=== PATIENT | female | born 1955 | race Caucasian/White ===

== ENCOUNTER 2016-09-20 12:16 | Outpatient (CLI) | payer MEDICAID | END 2016-09-20 12:17 | disposition home or self-care (01) | DX: R92.1 Mammographic calcification found on diagnostic imaging of breast (principal); Z80.3 Family history of malignant neoplasm of breast ==

== ENCOUNTER 2016-12-26 15:59 | Outpatient (CLI) | payer MEDICAID | END 2016-12-26 16:00 | disposition home or self-care (01) | DX: M19.071 Primary osteoarthritis, right ankle and foot (principal) ==

== ENCOUNTER 2017-07-04 15:37 | Outpatient (CLI) | payer MEDICAID ==
--- NOTE | 2017-07-05 09:25 | XRAY Report ---
TWO-VIEW CHEST: 07/04/2017 CLINICAL INDICATION: Pneumonia. COMPARISON: 08/01/2014 FINDINGS: Frontal and lateral views of the chest demonstrate a normal cardiac silhouette. There is a patchy right basilar infiltrate. No effusion or pneumothorax is present. IMPRESSION: PATCHY RIGHT BASILAR INFILTRATE. JOB #: [id number] EXT JOB #:[id number]
== END 2017-07-04 15:38 | disposition home or self-care (01) ==
LOC: DI.N 15:37
PROVIDERS: ATTEND Family Medicine
DX: J18.0 Bronchopneumonia, unspecified organism (principal); R09.02 Hypoxemia
CPT/HCPCS: 71020

== ENCOUNTER 2017-08-14 11:52 | Outpatient (CLI) | payer MEDICAID ==
--- NOTE | 2017-08-14 13:25 | Mammography Report ---
DIGITAL DIAGNOSTIC BILATERAL MAMMOGRAM: 08/14/2017 CLINICAL INDICATION: Followup calcifications. TECHNIQUE: Bilateral CC and MLO views, right true lateral and spot magnification views. COMPARISON: 09/20/2016, 12/26/2015, 03/22/2015, 09/27/2014, 09/02/2014. FINDINGS: The breasts demonstrate scattered fibroglandular densities bilaterally. The calcifications in question, in the right breast, remain punctate on spot magnification views. Other coarse and punc almaguer, typically benign calcifications are present. No suspicious masses, clustered microcalcification s, or regions of architectural distortion are identified. IMPRESSION: BENIGN FINDINGS. RECOMMENDATION: ROUTINE ANNUAL SCREENING UNLESS OTHERWISE CLINICALLY INDICATED. BIRADS CATEGORY 2-BENIGN FINDINGS. STANDARD QUALIFYING STATEMENTS 1. This examination was reviewed with the aid of Computer-Aided Detection (CAD). 2. A negative or benign imaging report should not delay biopsy if clinically suspicious findings are present. Consider surgical consultation if warranted. More than 5% of cancers are not identified by i maging. 3. Dense breasts may obscure an underlying neoplasm. JOB #: [id number] EXT JOB #:
== END 2017-08-14 11:53 | disposition home or self-care (01) ==
LOC: DI 11:52
PROVIDERS: ATTEND Obstetrics & Gynecology
DX: R92.1 Mammographic calcification found on diagnostic imaging of breast (principal)
CPT/HCPCS: 77066

== ENCOUNTER 2017-10-03 12:11 | Outpatient (CLI) | payer MEDICAID ==
--- NOTE | 2017-10-03 18:46 | XRAY Report ---
DATE OF SERVICE: 10/03/2017 THREE VIEW RIGHT ANKLE: 10/03/2017 CLINICAL INDICATION: Ankle sprain, pain. AP, lateral, oblique views of the right ankle demonstrate soft tissue swelling. There is no evidence of acute fracture or dislocation. No joint effusion is seen. No foreign body is seen in the soft tissues. IMPRESSION: Soft tissue swelling, but no evidence of acute fracture. TD: 10/03/2017 19:45
== END 2017-10-03 12:12 | disposition home or self-care (01) ==
LOC: DI 12:11
PROVIDERS: ATTEND Family Medicine
DX: M25.571 Pain in right ankle and joints of right foot (principal); R22.41 Localized swelling, mass and lump, right lower limb

== ENCOUNTER 2017-10-22 14:29 | Emergency (ER) | payer MEDICAID ==
--- NOTE | 2017-10-22 15:05 | ED Physician Documentation ---
PD HPI HEADACHE - Stated complaint Stated Complaint: BLURRY VISION,HEAD PRESSURE,LOSS OF BALANCE-GLF - Chief complaint Chief Complaint: Neuro - History obtained from History obtained from: Patient - History of Present Illness Timing - onset: How many days ago (fell and hit back of head 4 days ago. Gary headache at the time. Having head pressure, lightheaded, and feeling off balance the past 2 days.) Timing - onset during: Light activity Timing - details: Abrupt onset, Waxing and waning Worst headache ever?: No: Worst headache ever? Location: Back Quality: Aching, Other (pressure) Associated symptoms: No: Fever, Stiff neck, Nausea, Weakness, Numbness Improved by: Rest Worsened by: Moving. No: Light, Noise Contributing factors: Trauma Similar symptoms before: Has not had sx before Recently seen: Not recently seen Review of Systems Constitutional: denies: Fever, Chills Nose: denies: Rhinorrhea / runny nose, Congestion Throat: denies: Sore throat Cardiac: denies: Chest pain / pressure, Palpitations Respiratory: denies: Dyspnea, Cough GI: denies: Abdominal Pain, Nausea, Vomiting Skin: denies: Abrasion (s), Laceration (s) Neurologic: reports: Altered mental status (feeling lightheaded and off balance) . denies: Focal weakness, Numbness, Near syncope PD PAST MEDICAL HISTORY - Past Medical History Past Medical History: Yes Cardiovascular: Hypertension, [place], Other Respiratory: None Neuro: CVA Endocrine/Autoimmune: None Psych: Depression, Anxiety Musculoskeletal: Osteoarthritis - Past Surgical History Past Surgical History: Yes Ortho: Arthroscopic surgery Cardiovascular: Cardiac catheterization, Angioplasty - Present Medications Home Medications: Ambulatory Orders Medication Instructions Recorded Confirmed Aspirin 81 mg ORAL DAILY 08/01/14 10/08/14 EPINEPHrine [Epipen] 0.3 mg IM ONCE 10/08/14 10/08/14 Lisinopril 20 mg PO DAILY 10/22/17 SUMAtriptan [Imitrex] 25 mg PO DAILY PRN 10/22/17 10/22/17 Sertraline [Zoloft] 25 mg PO DAILY 10/22/17 - Allergies Allergies/Adverse Reactions: Allergies Allergy/AdvReac Type Severity Reaction Status Date / Time ketorolac tromethamine * Allergy Hallucinati Verified 10/22/17 14:44 [From Toradol] ons meperidine HCl * Allergy "I see Verified 10/22/17 14:44 [From Demerol] vitamin people having races on the ceiling for days" prednisone Allergy Hives Verified 10/22/17 14:44 pseudoephedrine HCl * Allergy throat Verified 10/22/17 14:44 [From Sudafed] swelling venom-honey bee Allergy Anaphylaxis Verified 10/22/17 14:44 [bee venom (honey bee)] - Social History Does the pt smoke?: Yes Smoking Status: Current every day smoker Does the pt drink ETOH?: No Does the pt have substance abuse?: No - Immunizations Immunizations are current?: No Immunizations: Other immun not current PD ED PE NORMAL - Vitals Vital signs reviewed: Yes - General General: Alert and oriented X 3, No acute distress, Well developed/nourished - HEENT HEENT: Atraumatic, PERRL, EOMI, Moist mucous membranes - Neck Neck: Supple, no meningeal sign, No adenopathy - Cardiac Cardiac: RRR, No murmur - Respiratory Respiratory: Clear bilaterally - Abdomen Abdomen: Soft, Non tender - Back Back: No CVA TTP, No spinal TTP - Derm Derm: Normal color, Warm and dry - Extremities Extremities: No tenderness to palpate, Normal ROM s pain - Neuro Neuro: Alert and oriented X 3, retort pre cooker 2-12 intact, No motor deficit, No sensory deficit, Normal speech, Other Eye Opening: Spontaneous Motor: Obeys Commands Verbal: Oriented GCS Score: 15 - Psych Psych: Normal mood, Normal affect Results - Vitals Vitals: Oxygen O2 Source Room air - Labs Labs: Laboratory Tests 10/22/17 10/22/17 10/22/17 16:14 16:14 16:14 WBC 8.1 RBC 4.81 Hgb 14.5 Hct 42.8 MCV 89.0 MCH 30.0 MCHC 33.7 RDW 12.6 Plt Count 282 MPV 8.0 Neut # 5.0 Lymph # 2.5 [place] # 0.4 Eos # 0.1 Baso # 0.1 Absolute Nucleated RBC 0.00 Nucleated RBC % 0.0 ESR 12 Sodium 140 Potassium 4.1 Chloride 102 Carbon Dioxide 26 Anion Gap 12.0 BUN 9 Creatinine 0.8 Estimated GFR (MDRD) 73 L Glucose 96 Calcium 9.0 Magnesium 2.1 Total Bilirubin 0.6 AST 16 ALT 16 Alkaline Phosphatase 85 Total Protein 7.6 Albumin 4.2 Globulin 3.4 Albumin/Globulin Ratio 1.2 Lipase 14 L - Rads (name of study) head CT Radiology: Prelim report reviewed (no acute process; minimal change in meningioma) PD MEDICAL DECISION MAKING - ED course Complexity details: reviewed results, considered differential, d/w patient Departure - Departure Disposition: 01 Home, Self Care Clinical Impression: Post concussion syndrome Condition: Stable Record reviewed to determine appropriate education?: Yes Instructions: ED Concussion Follow-Up: Parrish Shipley MD [Primary Care Provider] - Comments: Naproxen or ibuprofen 2-3 times a day for the next several days. No signs of obvious bad causes for your symptoms. If he had struck her head some a few days ago this may be just some postconcussive symptoms that typically last a few days to week. Recheck if not improved over the next several more days. Discharge Date/Time: 10/22/17 18:05
--- NOTE | 2017-10-22 16:01 | CT Report ---
EXAM: CT HEAD EXAM DATE: 10/22/2017 03:48 PM. CLINICAL HISTORY: Fall. Headache. Intermittent blurred vision and dizziness. History of brain tumor. COMPARISON: 03/10/2013. TECHNIQUE: Multiaxial CT images were obtained from the foramen magnum to the vertex. Reformats: Coron al. IV contrast: None. In accordance with CT protocol optimization, one or more of the following dose reduction techniques w ere utilized for this exam: automated exposure control, adjustment of mA and/or KV based on patient s ize, or use of iterative reconstructive technique. FINDINGS: Parenchyma: No intraparenchymal hemorrhage. No evidence of mass, midline shift, or CT findings of acu te infarction. Quezada-white differentiation is distinct. Mild chronic microangiopathic white matter phillip nges are evident. Extraaxial Spaces: Calcified left parafalcine mass, 1.5 x 1.1 cm, larger than prior, otherwise normal for age. No subdural or epidural collections identified. Ventricles: The ventricles and cortical sulci are normal for age. Sinuses and orbits: Imaged paranasal sinuses, orbits, and mastoids show no significant abnormality. Bones: No evidence of fracture or calvarial defect. Other: None. IMPRESSION: Mild age-related changes without evidence of acute intracranial abnormality, noting mild interval growth in a left parafalcine meningioma. [facility] Referring Provider Line: [phone] SITE ID: [id number]
[2017-10-22] MEDS ORDERED: KETOROLAC 60 MG/2 ML VIAL IVP STA (16:04)
[2017-10-22] MEDS ORDERED: SODIUM CHLORIDE 0.9% 1,000 ML IV ONE (16:04)
[2017-10-22 16:21] LABS: BASOPHILS # (AUTO) 0.1 10^3/uL (0.0-0.1); EOSINOPHILS # (AUTO) 0.1 10^3/uL (0.0-0.7); EOSINOPHILS % (AUTO) 0.9 %; HGB - HEMOGLOBIN 14.5 g/dL (12.0-16.0); LYMPHOCYTES # (AUTO) 2.5 10^3/uL (1.5-3.5); LYMPHOCYTES % (AUTO) 31.1 %; MEAN CORPUSCULAR HGB CONC 33.7 g/dL (32.0-36.0); MONOCYTES # (AUTO) 0.4 10^3/uL (0.0-1.0); MONOCYTES % (AUTO) 4.6 %; NEUTROPHILS % (AUTO) 62.4 %; PLT - PLATELET COUNT 282 10^3/uL (130-450); RED BLOOD COUNT 4.81 10^6/uL (4.20-5.40); RED CELL DISTRIBUTION WIDTH 12.6 % (12.0-15.0); WHITE BLOOD COUNT 8.1 x10^3/uL (4.8-10.8)
[2017-10-22 16:33] LABS: ALBUMIN 4.2 g/dL (3.2-5.5); ALBUMIN/GLOBULIN RATIO 1.2 (1.0-2.2); BILIRUBIN,TOTAL 0.6 mg/dL (0.2-1.0); CREATININE 0.8 mg/dL (0.4-1.0); MAGNESIUM 2.1 mg/dL (1.7-2.8); TOTAL PROTEIN 7.6 g/dL (6.7-8.2)
[2017-10-22 17:07] VITALS: BP 142/68
== END 2017-10-22 18:05 | disposition home or self-care (01) ==
LOC: ED 14:29
DX: F07.81 Postconcussional syndrome (principal); I10 Essential (primary) hypertension; I25.2 Old myocardial infarction; F17.200 Nicotine dependence, unspecified, uncomplicated; Z86.73 Personal history of transient ischemic attack (TIA), and cerebral infarction without residual deficits
CPT/HCPCS: 36415; 70450; 80053; 83690; 83735; 85025; 85651; 96360; 99283; 99284

== ENCOUNTER 2018-12-25 08:00 | Outpatient (CLI) | payer MEDICAID ==
[2018-12-25 20:49] LABS: BILIRUBIN,URINE NEGATIVE (NEGATIVE); GLUCOSE, URINE (UA) NEGATIVE (NEGATIVE); KETONES,URINE (UA) TRACE mg/dL (NEGATIVE); LEUKOCYTE ESTERASE, URINE NEGATIVE (NEGATIVE); NITRITE,URINE NEGATIVE (NEGATIVE); OCCULT BLOOD,URINE MODERATE (NEGATIVE); PH,URINE 6.5 PH (5.0-7.5); PROTEIN,URINE NEGATIVE (NEGATIVE); UROBILINOGEN,URINE 0.2 (NORMAL) E.U./dL (NORMAL)
[2018-12-25 21:21] LABS: CLARITY,URINE CLEAR (CLEAR)
[2018-12-25 21:22] LABS: BACTERIA,URINE None Seen /HPF (None Seen); RBC,URINE 0-5 /HPF (0-5); SQUAMOUS EPITHELIAL CELL,UR FEW Squamous (<= Few)
== END 2018-12-25 23:59 | disposition home or self-care (01) ==
LOC: LAB.R 08:00
PROVIDERS: ATTEND Physician Assistant Medical
DX: N39.0 Urinary tract infection, site not specified (principal); N30.90 Cystitis, unspecified without hematuria
CPT/HCPCS: 81001; 81003; 87086

== ENCOUNTER 2019-03-31 18:27 | Emergency (ER) | payer MEDICAID ==
[2019-03-31] MEDS ORDERED: diphenhydrAMINE INJ 50 MG/ML VIAL IM STA (18:40)
[2019-03-31] MEDS ORDERED: ALBUTEROL NEB 2.5 MG/3 ML INH STA (18:44)
--- NOTE | 2019-03-31 20:05 | ED Physician Documentation ---
History of Present Illness - Stated complaint Stated Complaint: BEE STING - Chief complaint Chief Complaint: Allergic Rx - History obtained from History obtained from: Patient - History of Present Illness Timing: How many hours ago (1) Pain level max: 0 Pain level now: 0 - Additonal information Additional information: 63-year-old female states that she was stung in the left ankle x2 by a bee. She states that her throat feels "dry". No difficulty breathing. No wheezing. No stridor. Had an EpiPen in the past but states that it was discolored so she did not use it. Has not taken any medications prior to arrival. Nothing makes it better or worse. Review of Systems Constitutional: denies: Fever, Chills Cardiac: denies: Chest pain / pressure Respiratory: denies: Cough GI: denies: Vomiting, Diarrhea Skin: denies: Rash Musculoskeletal: denies: Neck pain, Back pain Neurologic: denies: Headache PD PAST MEDICAL HISTORY - Past Medical History Past Medical History: Yes Cardiovascular: Hypertension, [place], Other Respiratory: None Endocrine/Autoimmune: None Psych: Depression, Anxiety Musculoskeletal: Osteoarthritis - Past Surgical History Past Surgical History: Yes Ortho: Arthroscopic surgery Cardiovascular: Cardiac catheterization, Angioplasty - Present Medications Home Medications: Ambulatory Orders Medication Instructions Recorded Confirmed Aspirin 81 mg ORAL DAILY 08/01/14 10/08/14 EPINEPHrine [Epipen] 0.3 mg IM ONCE 10/08/14 10/08/14 Lisinopril 20 mg PO DAILY 10/22/17 SUMAtriptan [Imitrex] 25 mg PO DAILY PRN 10/22/17 10/22/17 Sertraline [Zoloft] 25 mg PO DAILY 10/22/17 EPINEPHrine [Epinephrine] 0.3 mg IJ ONCE PRN #1 auto.injct 03/31/19 - Allergies Allergies/Adverse Reactions: Allergies Allergy/AdvReac Type Severity Reaction Status Date / Time ketorolac tromethamine * Allergy Hallucinati Verified 03/31/19 18:38 [From Toradol] ons meperidine HCl * Allergy "I see Verified 03/31/19 18:38 [From Demerol] vitamin people having races on the ceiling for days" prednisone Allergy Hives Verified 03/31/19 18:38 pseudoephedrine HCl * Allergy throat Verified 03/31/19 18:38 [From Sudafed] swelling venom-honey bee Allergy Anaphylaxis Verified 03/31/19 18:38 [bee venom (honey bee)] - Social History Does the pt smoke?: Yes Smoking Status: Current every day smoker Does the pt drink ETOH?: No Does the pt have substance abuse?: No - Immunizations Immunizations are current?: No Immunizations: Other immun not current PD ED PE NORMAL - Vitals Vital signs reviewed: Yes - General General: Alert and oriented X 3, No acute distress - HEENT HEENT: PERRL, Moist mucous membranes, Other (Normal oropharyngeal exam. No swelling. No stridor. Uvula midline. Normal phonation.) - Neck Neck: Supple, no meningeal sign - Cardiac Cardiac: RRR - Respiratory Respiratory: No respiratory distress, Clear bilaterally - Abdomen Abdomen: Soft, Non tender, Non distended - Derm Derm: Warm and dry, No rash - Extremities Extremities: No edema, No calf tenderness / cord - Neuro Neuro: Alert and oriented X 3 - Psych Psych: Normal mood, Normal affect Results - Vitals Vitals: Oxygen O2 Source Room air PD MEDICAL DECISION MAKING - ED course Complexity details: reviewed results, re-evaluated patient, considered differential, d/w patient ED course: Patient with an apparent allergic reaction to bee sting. Given Benadryl and albuterol treatment. Her symptoms resolved. She feels better. Will refill her EpiPen for her. She is allergic to steroids and so these were avoided. Patient counseled regarding signs and symptoms for which I believe and urgent re- evaluation would be necessary. Patient with good understanding of and agreement to plan and is comfortable going home at this time This document was made in part using voice recognition software. While efforts are made to proofread this document, sound alike and grammatical errors may occur. Departure - Departure Disposition: 01 Home, Self Care Clinical Impression: Bee sting Qualifiers: Encounter type: initial encounter Injury intent: accidental or unintentional Qualified Code(s): T63.441A - Toxic effect of venom of bees, accidental (unintentional), initial encounter Condition: Good Instructions: ED Bite Sting Insect Gen Allergic React Follow-Up: your,doctor as needed. [Other] Prescriptions: EPINEPHrine [Epinephrine] 0.3 mg IJ ONCE PRN #1 auto.injct PRN Reason: Anaphylaxis Comments: Return if you worsen. You can use Benadryl for any itching. Discharge Date/Time: 03/31/19 20:14
[2019-03-31 20:08] VITALS: BP 141/64
== END 2019-03-31 20:14 | disposition home or self-care (01) ==
LOC: ED 18:27
DX: T63.441A Toxic effect of venom of bees, accidental (unintentional), initial encounter (principal); X58.XXXA Exposure to other specified factors, initial encounter; Y93.H9 Activity, other involving exterior property and land maintenance, building and construction; Z88.8 Allergy status to other drugs, medicaments and biological substances; I10 Essential (primary) hypertension; F17.200 Nicotine dependence, unspecified, uncomplicated; Z79.82 Long term (current) use of aspirin
CPT/HCPCS: 94640; 96372; 99283; J1200

== ENCOUNTER 2023-06-20 12:59 | Emergency (ER) | payer MEDICARE, MEDICAID ==
[2023-06-20] MEDS ORDERED: ALBUTEROL NEB 2.5 MG/3 ML INH STA (13:30)
[2023-06-20] MEDS ORDERED: diphenhydrAMINE INJ 50 MG/ML VIAL IM STA (13:31)
[2023-06-20 13:37] VITALS: O2SAT 96
--- NOTE | 2023-06-20 13:38 | ED Physician Documentation ---
History of Present Illness - Stated complaint Stated Complaint: FACE SWELLING/BEE STING - Chief complaint Chief Complaint: Allergic Rx - History obtained from History obtained from: Patient - History of Present Illness Timing: Today Pain level max: 0 Pain level now: 0 - Additonal information Additional information: 67-year-old female presents to the emergency department after a bee sting today. The bee sting was to the left cheek. Has swelling localized to the left cheek. She states she feels mildly short of breath. Did not take anything prior to arrival. Nothing makes it better or worse. Review of Systems Constitutional: denies: Fever, Chills GI: denies: Vomiting, Diarrhea Skin: denies: Rash PD PAST MEDICAL HISTORY - Past Medical History Cardiovascular: Hypertension, [place], Other Respiratory: None Endocrine/Autoimmune: None Psych: Depression, Anxiety Musculoskeletal: Osteoarthritis - Past Surgical History Past Surgical History: Yes Ortho: Arthroscopic surgery Cardiovascular: Cardiac catheterization, Angioplasty - Present Medications Home Medications: Ambulatory Orders Medication Instructions Recorded Confirmed Aspirin 81 mg ORAL DAILY 08/01/14 10/08/14 EPINEPHrine [Epipen] 0.3 mg IM ONCE 10/08/14 10/08/14 SUMAtriptan [Imitrex] 25 mg PO DAILY PRN 10/22/17 10/22/17 Sertraline [Zoloft] 25 mg PO DAILY 10/22/17 lisinopriL [Lisinopril] 20 mg PO DAILY 10/22/17 EPINEPHrine [Epinephrine] 0.3 mg IJ ONCE PRN #1 auto.injct 03/31/19 Albuterol Sulf [Ventolin Hfa 1 - 2 puffs INH Q4HR PRN #1 each 06/20/23 Inhaler] Cetirizine HCl [Allergy] 10 mg PO DAILY #7 tablet 06/20/23 EPINEPHrine [Epinephrine] 0.3 mg IJ ONCE PRN #1 each 06/20/23 - Allergies Allergies/Adverse Reactions: Allergies Allergy/AdvReac Type Severity Reaction Status Date / Time ketorolac tromethamine * Allergy Hallucinati Verified 06/20/23 13:33 [From Toradol] ons meperidine HCl * Allergy "I see Verified 06/20/23 13:33 [From Demerol] vitamin people having races on the ceiling for days" prednisone Allergy Hives Verified 06/20/23 13:33 pseudoephedrine HCl * Allergy throat Verified 06/20/23 13:33 [From Sudafed] swelling venom-honey bee Allergy Anaphylaxis Verified 06/20/23 13:33 [bee venom (honey bee)] - Social History Does the pt smoke?: Yes Smoking Status: Current every day smoker Does the pt drink ETOH?: No Does the pt have substance abuse?: No - Immunizations Immunizations are current?: No Immunizations: Other immun not current PD ED PE NORMAL - Vitals Vital signs reviewed: Yes - General General: Alert and oriented X 3, No acute distress - HEENT HEENT: PERRL, Moist mucous membranes, Pharynx benign, Other (Mild localized swelling to the left cheek at the site of the sting. No stridor. No wheezing. Normal phonation. Normal oropharyngeal exam) - Neck Neck: Supple, no meningeal sign - Cardiac Cardiac: RRR, Strong equal pulses - Respiratory Respiratory: No respiratory distress, Clear bilaterally - Abdomen Abdomen: Soft, Non tender, Non distended - Derm Derm: Warm and dry - Extremities Extremities: No edema - Neuro Neuro: Alert and oriented X 3 - Psych Psych: Normal mood, Normal affect Results - Vitals Vitals: Vital Signs - 24 hr 06/20/23 06/20/23 06/20/23 13:22 13:49 15:21 Temperature 36.5 C Heart Rate 66 60 64 Respiratory 18 18 18 Rate Blood Pressure 162/74 H 132/70 H O2 Saturation 96 96 Oxygen O2 Source Room air PD Medical Decision Making - ED course Complexity details: re-evaluated patient (Asymptomatic), considered differential, d/w patient ED course: 67-year-old female status post a bee sting appears to have a localized reaction, given Benadryl IM. She states she is allergic to prednisone and it causes her to swell. Does not have any evidence of anaphylaxis, therefore epinephrine was not given. She did feel mildly short of breath so an albuterol nebulizer was given. She feels better after the nebulizer. Observed in the emergency department with no recurrence of symptoms. Would recommend staying on Zyrtec for the next several days. We will place her on an albuterol inhaler at home as she used to have 1 but is now out. She also request an epinephrine pen. Patient counseled regarding signs and symptoms for which I believe and urgent re-evaluation would be necessary. Patient with good understanding of and agreem ent to plan and is comfortable going home at this time This document was made in part using voice recognition software. While efforts are made to proofread this document, sound alike and grammatical errors may occur. Departure - Departure Disposition: 01 Home, Self Care Clinical Impression: Bee sting Qualifiers: Encounter type: initial encounter Injury intent: assault Qualified Code(s): T63.443A - Toxic effect of venom of bees, assault, initial encounter Condition: Good Instructions: ED Bite Sting Insect Gen Allergic React Follow-Up: your,doctor in 1 week [Other] Prescriptions: Albuterol Sulf [Ventolin Hfa Inhaler] 1 - 2 puffs INH Q4HR PRN #1 each PRN Reason: Shortness Of Air/Wheezing Cetirizine HCl [Allergy] 10 mg PO DAILY #7 tablet EPINEPHrine [Epinephrine] 0.3 mg IJ ONCE PRN #1 each PRN Reason: Anaphylaxis Comments: Your prescriptions were sent to [facility] in [place]. Please follow-up with your doctor as needed for further care. Please return if you worsen. We will place you on cetirizine for the next several days to help prevent any further allergic reaction. Forms: PCP List Discharge Date/Time: 06/20/23 15:24
[2023-06-20 15:27] VITALS: BP 132/70
== END 2023-06-20 15:24 | disposition home or self-care (01) ==
LOC: ED 12:59
DX: T63.441A Toxic effect of venom of bees, accidental (unintentional), initial encounter (principal); F17.200 Nicotine dependence, unspecified, uncomplicated; Z88.8 Allergy status to other drugs, medicaments and biological substances
CPT/HCPCS: 94640; 96372; 99283; J1200

== ENCOUNTER 2023-08-02 14:45 | Outpatient (CLI) | payer MEDICARE, MEDICAID ==
[2023-08-02 17:46] LABS: BASOPHILS # (AUTO) 0.1 10^3/uL (0.0-0.1); BASOPHILS % (AUTO) 0.8 %; EOSINOPHILS # (AUTO) 0.1 10^3/uL (0.0-0.7); HCT - HEMATOCRIT 45.2 % (37.0-47.0); LYMPHOCYTES # (AUTO) 2.7 10^3/uL (1.5-3.5); LYMPHOCYTES % (AUTO) 29.6 %; MEAN CORPUSCULAR HEMOGLOBIN 31.3 pg (27.0-31.0); MEAN CORPUSCULAR HGB CONC 33.2 g/dL (32.0-36.0); MEAN CORPUSCULAR VOLUME 94.2 fL (81.0-99.0); MEAN PLATELET VOLUME 10.1 fL (7.9-10.8); MONOCYTES # (AUTO) 0.5 10^3/uL (0.0-1.0); MONOCYTES % (AUTO) 5.4 %; NEUTROPHILS # (AUTO) 5.8 10^3/uL (1.5-6.6); PLT - PLATELET COUNT 313 10^3/uL (130-450); RED CELL DISTRIBUTION WIDTH 11.9 % (12.0-15.0); WHITE BLOOD COUNT 9.1 x10^3/uL (4.8-10.8)
[2023-08-02 18:07] LABS: ALBUMIN 4.6 g/dL (3.2-5.5); ALBUMIN/GLOBULIN RATIO 1.9 (1.0-2.2); BILIRUBIN,TOTAL 0.4 mg/dL (0.2-1.0); CALCIUM 9.5 mg/dL (8.5-10.3); CREATININE 0.7 mg/dL (0.6-1.3)
[2023-08-02 18:15] LABS: THYROID STIMULATING HORMONE 1.02 uIU/mL (0.34-5.60)
[2023-08-02 18:20] LABS: ESTIMATED AVERAGE GLUCOSE 100 mg/dL (70-100); HEMOGLOBIN A1c% 5.1 % (4.27-6.07)
[2023-08-02 21:36] LABS: BACTERIAL VAGINOSIS DNA POSITIVE (NEGATIVE); CANDIDA GLABRATA DNA NEGATIVE (NEGATIVE); CANDIDA GROUP DNA NEGATIVE (NEGATIVE); CANDIDA KRUSEI DNA NEGATIVE (NEGATIVE); TRICHOMONAS VAGINALIS DNA NEGATIVE (NEGATIVE)
== END 2023-08-02 15:00 | disposition home or self-care (01) ==
LOC: LAB.N 14:45
PROVIDERS: ATTEND Registered Nurse
DX: R63.4 Abnormal weight loss (principal); R10.9 Unspecified abdominal pain; N89.8 Other specified noninflammatory disorders of vagina
CPT/HCPCS: 36415; 80053; 81514; 83036; 83690; 84443; 85025

== ENCOUNTER 2023-08-02 16:57 | Outpatient (CLI) | payer MEDICARE, MEDICAID ==
--- NOTE | 2023-08-02 20:18 | XRAY Report ---
PROCEDURE: Abdomen Acute INDICATIONS: WIEGHT LOSS/ABDOMINAL PAIN TECHNIQUE: 3 views of the abdomen were acquired. COMPARISON: None. FINDINGS: Surgical changes and devices: None. Chest: Lungs are clear. Heart size is normal. No pleural effusions. No pneumoperitoneum. Bowel: No pneumoperitoneum. The bowel gas pattern is normal. Stool load within normal limits. Soft tissues: No masses; visualized solid organ contours appear normal in size. No suspicious abdom inal calcifications. Bones: No suspicious bony abnormalities. Dextrocurvature of the lumbar spine. Multilevel degenerati ve changes of the spine. IMPRESSION: No acute abdominal or chest pathology. Reviewed by: Tony Cummings MD on 08/02/2023 8:16 PM PST Approved by: Tony Cummings MD on 08/02/2023 8:16 PM PST Station ID: [id number]
== END 2023-08-02 16:58 | disposition home or self-care (01) ==
LOC: DI 16:57
PROVIDERS: ATTEND Registered Nurse
DX: R63.4 Abnormal weight loss (principal); R10.9 Unspecified abdominal pain; N89.8 Other specified noninflammatory disorders of vagina
CPT/HCPCS: 36415; 80053; 81514; 83036; 83690; 84443; 85025

== ENCOUNTER 2023-09-26 09:42 | Outpatient (CLI) | payer MEDICARE, MEDICAID ==
[2023-09-26 12:39] LABS: CALCIUM 9.4 mg/dL (8.5-10.3); CREATININE 0.7 mg/dL (0.6-1.3); POTASSIUM 4.1 mmol/L (3.5-4.5)
== END 2023-09-26 09:43 | disposition home or self-care (01) ==
LOC: LAB.N 09:42
PROVIDERS: ATTEND Internal Medicine
DX: R63.4 Abnormal weight loss (principal); R10.84 Generalized abdominal pain
CPT/HCPCS: 36415; 80048

== ENCOUNTER 2024-03-30 21:20 | Emergency (ER) | payer MEDICARE, MEDICAID ==
[2024-03-30 21:39] VITALS: O2SAT 100
== END 2024-03-30 23:18 | disposition left against medical advice (07) ==
LOC: ED 21:20
DX: Z53.21 Procedure and treatment not carried out due to patient leaving prior to being seen by health care provider (principal)